=== PATIENT | male | born 1970 | race Caucasian/White ===

== ENCOUNTER 2018-10-18 18:41 | Emergency (ER) | payer MEDICAID ==
[~2018-10-18] VITALS: Ht 177.8 cm; Wt 90.7 kg
[~2018-10-18 18:41] MED LIST: NORPTMEDS CO; TRAM50TA2 PO
[2018-10-18 18:50] VITALS: BP 146/88
[2018-10-18 19:16] LABS: Basophils # (auto) 0.1 uL; Basophils % (auto) 0.9 % (0.0-2.0); Eosinophils # (auto) 0.2 uL; Eosinophils % (auto) 1.5 % (0.0-7.0); Hematocrit 43.9 % (41.0-53.0); Hemoglobin 15.2 g/dL (13.5-17.5); Lymphocytes # (auto) 1.9 uL; Lymphocytes % (auto) 17.1 % (10.0-50.0); Mean Corpuscular Hemoglobin 29.7 pg (28.0-32.0); Mean Corpuscular Hgb Conc. 34.7 g/dL (32.0-36.0); Mean Corpuscular Volume 85.5 fL (80.0-100.0); Monocytes # (auto) 0.8 uL; Neutrophils % (auto) 73.5 % (37.0-80.0); Platelet Count (auto) 267 10^3/uL (140-450); Red Blood Cells 5.14 10^6/uL (4.5-5.90); Red Cell Distribution Width 13.2 % (11.8-14.3); White Blood Cell 10.8 10^3/uL (4.4-10.8)
[2018-10-18 19:39] LABS: Calcium 9.1 mg/dL (8.5-10.1); Potassium 3.5 mmol/L (3.5-5.1)
[2018-10-18 19:42] LABS: BUN/Creatinine Ratio 9.6; Bilirubin, Total 0.7 mg/dL (0.2-1.0); Total Protein 7.4 g/dL (6.4-8.2)
== END 2018-10-19 02:10 | disposition left against medical advice (07) ==
LOC: ER 18:41
DX: R10.9 Unspecified abdominal pain (principal); Z53.21 Procedure and treatment not carried out due to patient leaving prior to being seen by health care provider
CPT/HCPCS: 36415; 80053; 85025

== ENCOUNTER 2023-01-20 12:46 | Emergency (ER) | payer MEDICAID | END 2023-01-20 13:27 | disposition left against medical advice (07) | LOC: ER 12:46 | DX: R10.32 Left lower quadrant pain (principal); Z53.21 Procedure and treatment not carried out due to patient leaving prior to being seen by health care provider ==

== ENCOUNTER 2023-01-22 11:25 | Emergency (ER) | payer MEDICAID ==
[~2023-01-22] VITALS: Ht 175.3 cm; Wt 95.3 kg
[2023-01-22 12:05] VITALS: BP 158/107; PULSE 95; RESP 18; O2SAT 97
[2023-01-22] MEDS ORDERED: CEPH500C PO (12:57)
[2023-01-22] MEDS ORDERED: IBUP-1456 PO (12:57)
[2023-01-22] MEDS ORDERED: BACDST PO (12:57)
[2023-01-22] MEDS ORDERED: cefTRIAXone SOD 1,000 MG VL IM ONE (13:00)
[2023-01-22] MEDS ORDERED: ACETAMINOPHEN 500 MG TAB PO ONE (13:00)
[2023-01-22 13:11] VITALS: TEMP 98
== END 2023-01-22 13:27 | disposition home or self-care (01) ==
LOC: ER 11:25
DX: B99.8 Other infectious disease (principal); F17.210 Nicotine dependence, cigarettes, uncomplicated; F12.90 Cannabis use, unspecified, uncomplicated; Z88.5 Allergy status to narcotic agent; Z88.8 Allergy status to other drugs, medicaments and biological substances; Z79.899 Other long term (current) drug therapy
CPT/HCPCS: 96372; 99283; J0696